=== PATIENT | male | born 1965 | race Caucasian/White ===

== ENCOUNTER 2018-03-23 10:07 | Day surgery (SDC) | payer OTHER ==
[2018-03-18 10:45] VITALS: BMI 23.3
[2018-03-23 10:30] VITALS: TEMP 99.7
[2018-03-23 12:03] VITALS: BP 121/61; PULSE 88
== END 2018-03-23 12:15 | disposition home or self-care (01) ==
LOC: FASU-ENDO 10:07
PROVIDERS: ATTEND Internal Medicine Gastroenterology
PROC: 0DJD8ZZ Inspection of Lower Intestinal Tract, Via Natural or Artificial Opening Endoscopic (ICD-10-PCS; principal; 2018-03-23 11:10)
DX: Z12.11 Encounter for screening for malignant neoplasm of colon (principal)